=== PATIENT | female | born 1960 | race Caucasian/White ===

== ENCOUNTER 2020-05-02 00:26 | Emergency (ER) | payer OTHER ==
[2020-05-02 05:14] LABS: HEMOGLOBIN 16.3 gm/dl (12.3-15.3); RED BLOOD COUNT 5.37 M/UL (4.00-5.10); WHITE BLOOD COUNT 7.6 K/UL (4.5-11.0)
[2020-05-02 05:29] LABS: BUN/CREATININE RATIO 27 (0-10)
[2020-05-02] MEDS ORDERED: HYDROCHLOROTHIA25 MG PO (05:49)
[2020-05-02] MEDS ORDERED: METFORMIN HCL500 MG PO (05:49)
== END 2020-05-02 06:00 | disposition home or self-care (01) ==
LOC: ER1 00:26
PROVIDERS: Family Medicine
DX: R20.0 Anesthesia of skin (principal); E11.65 Type 2 diabetes mellitus with hyperglycemia; I10 Essential (primary) hypertension; Z88.5 Allergy status to narcotic agent
CPT/HCPCS: 70450; 80053; 82550; 82553; 83874; 84439; 84443; 84484; 85025; 96374; 99284

== ENCOUNTER 2020-05-11 22:35 | Emergency (ER) | payer OTHER ==
[~2020-05-11 22:35] MED LIST: HYDROCHLOROTHIA25 MG PO; METFORMIN HCL500 MG PO
== END 2020-05-12 01:12 | disposition left against medical advice (07) ==
LOC: ER1 22:35
DX: Z53.21 Procedure and treatment not carried out due to patient leaving prior to being seen by health care provider (principal)
CPT/HCPCS: 93005